=== PATIENT | male | born 1935 | race Caucasian/White ===

== ENCOUNTER 2016-10-06 06:09 | Day surgery (SDC) | payer OTHER, MEDICARE ==
[2016-09-30 15:25] VITALS: BMI 28.3
[2016-10-06] MEDS ORDERED: BACITRACIN 3.5 GM OPTHALMIC OINT TUBE ONE (07:19)
[2016-10-06] MEDS ORDERED: POVIDONE-IODINE 5% OPHTHALMIC PREP 30 ML SOLUTION ONE (07:19)
[2016-10-06] MEDS ORDERED: TETRACAINE 0.5% OPHTH SOLN 2 ML BOTTLE ONE (07:19)
[2016-10-06] MEDS ORDERED: THROMBIN (BOVINE) 5,000 UNIT VIAL TP ONE (07:19)
[2016-10-06] MEDS ORDERED: BUPIVACAINE HCL/PF 0.5% (5MG/ML) 10 ML VIAL ONE (07:19)
[2016-10-06] MEDS ORDERED: LIDOCAINE 1%-EPI 1:100,000 30 ML MDV IJ ONE (07:20)
[2016-10-06] MEDS ORDERED: SUCCINYLCHOLINE CHLORIDE 200 MG/10 ML VIAL ONE ×2 (07:24)
[2016-10-06] MEDS ORDERED: PROPOFOL 20 ML ONE ×6 (07:24→08:12)
[2016-10-06] MEDS ORDERED: ACETAMINOPHEN 500 MG TABLET (FP) PO PRN (08:46)
[2016-10-06] MEDS ORDERED: LACTATED RINGERS SOLUTION 1,000 ML IV SCH (09:00)
[2016-10-06] MEDS ORDERED: oxyCODONE HCL 5 MG TABLET PO PRN (09:19)
[2016-10-06] MEDS ORDERED: ONDANSETRON 4 MG/2 ML VIAL IVPUSH PRN (09:19)
[2016-10-06 09:59] VITALS: TEMP 97.6
[2016-10-06 10:16] VITALS: BP 134/59; PULSE 56
--- NOTE | 2016-10-06 21:03 | OP ---
DATE OF OPERATION: 10/06/2016 PREOPERATIVE DIAGNOSIS: Involutional ptosis, right upper lid. POSTOPERATIVE DIAGNOSIS: Involutional ptosis, right upper lid. PROCEDURE: Levator advancement and reattachment, right upper lid. SURGEON: Alhaji Hanson MD ANESTHESIA: Local with sedation. COMPLICATIONS: None. ESTIMATED BLOOD LOSS: Less than 1 mL. OPERATIVE REPORT: Patient brought to the operating room and placed on the operating room table, vital signs monitored by Anesthesia. Tetracaine was placed in both eyes. The lid crease was marked 9 mm above the lash line in curvilinear fashion. A time-out was performed. The patient was given intravenous sedation and 2% Xylocaine and 1:100,000 epinephrine was then injected for a total of 0.5% underneath the lid crease in the central eyelid. This was then massaged for dispersion of anesthetic. The patient was prepped and draped in the usual sterile fashion, exposing both eyes due to the patient's multiple implantations bipolar cautery was used. An incision was made with a 15 blade through skin and subcutaneous tissue. This was carried down through the muscle with Elmer scissors and then the septum was widely opened with Elmer scissors, exposing fat, underneath which the aponeurosis was identified as a dehisced aponeurosis. Suborbicularis plane was dissected inferiorly down toward the tarsal plate. The anterior superior tarsus was identified, as was muscle attaching to the tarsus. At that point the levator was reattached to the anterior superior tarsus with 2 interrupted double-arm 6-0 Vicryl sutures in partial-thickness tarsal bites. The lid was everted, demonstrating no penetration of the suture. Each of the sutures were then tied. The patient was allowed to wake up and then he was placed in the upright position. Once he was fully awake and the lid height and contour were assessed, I felt that it was too high up laterally due to the lateralmost suture reattaching the levator aponeurosis to the tarsus and therefore the lateral suture was removed, the central suture was tied. The lid height was again assessed and found to be 3 mm above the visual axis with a good contour and he was able to close his eyelid fully. This suture was tied and would lock in permanent fashion. Antibiotic irrigation was used throughout the case using bacitracin irrigation. The wound was again irrigated. Hemostasis was achieved with bipolar cautery when needed, and following this, a small amount of anesthetic was injected subcutaneously in the upper and lower portion of the eyelid and the lid was then closed with a running 6-0 plain suture. Bacitracin was placed on the sutures and the patient was taken to the recovery room in stable condition. Josselyn CHINCHILLA/[id number]
== END 2016-10-06 10:15 | disposition home or self-care (01) ==
LOC: FASU 06:09
PROVIDERS: ATTEND Ophthalmology
PROC: 08SN0ZZ Reposition Right Upper Eyelid, Open Approach (ICD-10-PCS; principal; 2016-10-06 08:06)
DX: H02.401 Unspecified ptosis of right eyelid (principal)
CPT/HCPCS: 94760